=== PATIENT | female | born 2000 | race Caucasian/White ===

== ENCOUNTER 2023-04-27 18:44 | Inpatient (IN) | payer OTHER ==
[2023-04-27] MEDS ORDERED: AMPICILLIN 2,000 MG in SODIUM CHLORIDE 0.9% 100 ML IVPB STA (19:24)
[2023-04-27] MEDS: LACTATED RINGERS 1,000 ML IV SCH (19:45)
[2023-04-27 19:47] LABS: Basophils % (A) 0 %; Eosinophils % (A) 0 %; HCT 33.5 % (34.0-46.0); HGB 11.6 gm/dL (11.4-16.0); Lymphocytes # (A) 1.8 k/uL (1.0-4.8); Lymphocytes % (A) 16 %; MCH 28.2 pg (25.0-35.0); MCHC 34.8 g/dL (31.0-37.0); MCV 81.3 fL (80.0-100.0); Mean Platelet Volume 9.3; Monocytes # (A) 0.5 k/uL (0-1.0); Monocytes % (A) 4 %; Neutrophils # (A) 8.8 k/uL (1.3-7.7); Neutrophils % (A) 79 %; Platelet Count 240 k/uL (150-450); RBC 4.12 m/uL (3.80-5.40); RDW 13.1 % (11.5-15.5); WBC 11.2 k/uL (3.8-10.6)
[2023-04-27] MEDS ORDERED: CARBOPROST TROMETHAMINE 250 MCG/ML 1 ML AMP IM PRN (20:03)
[2023-04-27] MEDS ORDERED: METHYLERGONOVINE 0.2 MG/ML 1 ML AMP IM PRN (20:03)
[2023-04-27] MEDS ORDERED: TRANEXAMIC 1,000 MG/100ML-NACL 1,000 MG in EMPTY BAG 1 BAG IV PRN (20:03)
[2023-04-27] MEDS ORDERED: TERBUTALINE 1 MG/ML VIAL SQ PRN (20:03)
[2023-04-27] MEDS ORDERED: OXYTOCIN 10 UNIT/ML 1 ML VIAL IM PRN (20:03)
[2023-04-27] MEDS ORDERED: LIDOCAINE 0.5% (PF) 5 MG/ML (50 ML SDV) SQ PRN (20:03)
[2023-04-27] MEDS ORDERED: miSOPROStoL 200 MCG TAB PO PRN (20:03)
[2023-04-27] MEDS: BETAMET ACET-BETAMETH SOD PHOS 6 MG/ML MDV IM SCH (20:05)
[2023-04-27] MEDS ORDERED: NALBUPHINE 10 MG/ML (10 ML MDV) IV PRN (20:05)
--- NOTE | 2023-04-27 20:16 | P.HPOB ---
History of Present Illness H&P Date: 04/27/23 Chief Complaint: Leaking of fluid. This patient is a pleasant 22-year-old 4 para 2 female estimated date of confinement 06/02/2023 estimated gestational age 34-6/7 weeks per patient report. Patient has had no care here she's had with Dr. Tsai in [place]. Patient states that her water broke at approximately 5:00 this evening and she contacted her office and they instructed her to come to [facility]. Patient's records are unavailable to me at this time. She states that she's had normal ultrasounds and normal glucose testing. She's had 2 previous vaginal deliveries both early. Evaluation here shows gross rupture of membranes and patient is 4-5 cm dilated. Review of Systems Genitourinary: Reports Menstruation: Reports amenorrhea Past Medical History Past Medical History: No Reported History Additional Past Medical History / Comment(s): Vaginal delivery 2 History of Any Multi-Drug Resistant Organisms: None Reported Past Surgical History: No Surgical Hx Reported Past Anesthesia/Blood Transfusion Reactions: No Reported Reaction Past Psychological History: No Psychological Hx Reported Smoking Status: Never smoker Past Alcohol Use History: None Reported Past Drug Use History: None Reported Medications and Allergies Home Medications Medication Instructions Recorded Confirmed Type Vit No.179/Iron/Folic 1 tablet PO DAILY 04/27/23 04/27/23 History [ Tablet] Allergies Allergy/AdvReac Type Severity Reaction Status Date / Time latex Allergy Swelling Verified 04/27/23 19:06 Exam Intake and Output 04/27/23 04/27/23 04/27/23 06:59 14:59 22:59 Other: Weight 73.028 kg - OBG Physical Exam Abdomen: bowel sounds normal, no diffuse tenderness, no bruit present, no guarding noted, no hepatomegaly, no splenomegaly, no mass Vulva: both: normal Vagina: no discharge Cervix: no lesion (Cervix is 4-5 cm dilated 50% effaced with gross rupture membranes), no discharge Uterus: enlarged Results Result Diagrams: 04/27/23 19:26 Abnormal Lab Results - Last 24 Hours (Table) 04/27/23 Range/Units 19:26 WBC 11.2 H (3.8-10.6) k/uL Hct 33.5 L (34.0-46.0) % Neutrophils # 8.8 H (1.3-7.7) k/uL Assessment and Plan Assessment: This is a pleasant 22-year-old 4 para 2 female 34-6/7 weeks gestation with premature rupture membranes. Patient has a history of fast labors and is 4-5 cm dilated. Due to the concern of delivery and transport it is my opinion the patient will need to be admitted here for care. Plan is to administer IV antibiotics due to unknown group B strep status, Celestone for lung maturity, and proceed with expectant management at this time. Since the patient is going to be 35 weeks and approximately 4 hours, most likely the baby will be kept here in the nursery unless deemed otherwise by the internal combustion engineer. I discussed the treatment plan with the patient and her partner and a understand. Questions are answered. (1) 35 weeks gestation of Current Visit: Yes Status: Acute Code(s): Z3A.35 - 35 WEEKS GESTATION OF SNOMED Code(s): 43631337 (2) PROM (premature rupture of membranes) Current Visit: Yes Status: Acute Code(s): O42.90 - STEVEN ROM, 7TH0 BETW RUPT & ONST LABR, UNSP WEEKS OF GEST SNOMED Code(s): 64498090
[2023-04-27 20:25] LABS: Appearance,Urine Clear (Clear); Bilirubin,Urine Negative (Negative); Blood,Urine Negative (Negative); Color,Urine Colorless; Glucose,Urine (UA) Negative (Negative); Ketones,Urine Negative (Negative); Leukocyte Esterase,Urine Small (Negative); Mucus,Urine Rare /hpf; Nitrite,Urine Negative (Negative); PH, Urine 6.5 (5.0-8.0); Protein,Urine Trace (Negative); RBC,Urine 1 /hpf (0-5); Specific Gravity,Urine 1.009 (1.001-1.035); Squamous Epithelial Cell,Urine 6 /hpf (0-4); Urobilinogen,Urine <2.0 mg/dL (<2.0); WBC,Urine 7 /hpf (0-5)
[2023-04-27 20:46] LABS: Amphetamine Screen,Urine Not Detected (NotDetected); Barbiturate Screen,Urine Not Detected (NotDetected); Benzodiazepines Screen,Urine Not Detected (NotDetected); Cocaine Screen,Urine Not Detected (NotDetected); Methadone Screen, Urine Not Detected (NotDetected); Opiate Screen,Urine Not Detected (NotDetected); Oxycodone Screen, Urine Not Detected (NotDetected); Phencyclidine Screen,Urine Not Detected (NotDetected); Tricyclic Antidepressant,Urine Not Detected (NotDetected); Urn Cannabinoid Scrn Not Detected (NotDetected)
[2023-04-28] MEDS: AMPICILLIN 1,000 MG in SODIUM CHLORIDE 0.9% 50 ML IVPB SCH ×4 (00:03→12:26)
[2023-04-28] MEDS: LACTATED RINGERS 1,000 ML IV SCH ×2 (00:06→10:02)
[2023-04-28 02:43] LABS: Hepatitis B Surface Antigen Nonreactive
[2023-04-28] MEDS ORDERED: OXYTOCIN 30 UNITS/500 ML NS 30 UNIT in SALINE 1 500ML.BAG IV SCH ×2 (05:15→12:52)
[2023-04-28 05:19] LABS: HIV 2 AB Non-Reactive (Non-Reactive); HIV AB P24 Non-Reactive (Non-Reactive); HIV P24 AG Non-Reactive (Non-Reactive)
--- NOTE | 2023-04-28 07:12 | P.MSEPDOC ---
Presenting Problems - Arrival Data Date of Arrival on Unit: 04/27/23 Time of Arrival on Unit: 19:58 Mode of Transport: Ambulatory - Complaint OB-Reason for Admission/Chief Complaint: Rule Out SROM Comment: DOM pt presents to triage with c/o SROM around 1700 Medical History - Information : 4 Para: 2 Term: 2 : 0 Abortions: Spontaneous or Elective: 1 Number of Living Children: 2 - Gestational Age Gestational Age by PATRICA (wks/days): 34 Weeks and 6 Days Review of Systems - Review of Systems Constitutional: No problems Breast: No problems ENT: No problems Cardiovascular: No problems Respiratory: No problems Gastrointestinal: No problems Genitourinary: No problems Musculoskeletal: No problems Neurological: No problems Skin: No problems Vital Signs - Temperature Temperature: 97.8 F Temperature Source: Temporal Artery Scan - Pulse Pulse Oximetery Pulse Rate: 100 Pulse Assessment Method: Pulse Oximetry - Respirations Respiratory Rate: 18 Oxygen Delivery Method: Room Air O2 Sat by Pulse Oximetry: 99 - Blood Pressure Right Arm Blood Pressure: 135/69 Blood Pressure Mean: 91 Blood Pressure Source: Automatic Cuff Medical Screen Scoring - Cervical Exam Dilation (cm): 4 Effacement (%): 50 Station: -2 Membranes: Ruptured - Uterine Contractions Intensity: Mild Resting: Soft to palpation - Assessment - Baby A Baseline FHR: 130 Heart Rate - NICHD Category: Category I (Normal) NST: Reactive Physician Notification - Physician Notified Physician Notified Date: 04/27/23 Physician Notified Time: 19:17 Physician: Yovanny Holt New Order Received: Yes - Notification Comment Comment: RN spoke with Dr. Holt regarding DOM pt who presents to triage with c/o SROM. around 1700 with clear fluid and is 34 weeks, 6 days. Reported maternal vital signs,. positive amnisure, cervical exam of 4/70/-2, isis 1 FHT, no contx on toco or palpated by. RN. Reported pt receives care through Dr. Tsai out of [place]. Orders received to start. IV, draw labs, CBC, T/S, tox screen, start 2g ampicillin and Dr. Holt to. head into unit. At 1955, verbal order received from Dr. Holt to admit pt for labor. Maternal Triage Index - Maternal Triage Index Presenting for scheduled procedure w/no complaint: No - Stat/Priority 1 Stat Priority 1: No - Urgent/Priority 2 Urgent Priority 2: No - Prompt/Priority 3 Prompt Priority 3: Yes Criteria Met for Priority 3: SROM 34 6/7 weeks Disposition - Disposition OB Disposition: Admit, LDRP Suite Transferred to:: Suite 3 I agree with the RN Medical Screening Exam: Yes Case reviewed; plan agreed upon as documented in EMR&OBIX.: Yes Diagnosis: RELATED CONDITIONS, UNSPECIFIED, THIRD TRIMESTER
[2023-04-28] MEDS: BETAMET ACET-BETAMETH SOD PHOS 6 MG/ML MDV IM SCH (07:55)
[2023-04-28] MEDS ORDERED: fentaNYL (PF) 50 MCG/ML 5 ML AMP ONE (11:38)
[2023-04-28] MEDS ORDERED: ROPIVACAINE 5 MG/ML 30 ML VIAL ONE (11:38)
[2023-04-28] MEDS ORDERED: SODIUM CHLORIDE 0.9% 250 ML BAG ONE (11:38)
[2023-04-28] MEDS ORDERED: BENZOCAINE/MENTHOL SPRAY 1 GM/SPRAY AEROSOL TOPICAL PRN (12:52)
[2023-04-28] MEDS ORDERED: ZOLPIDEM 5 MG TAB PO PRN (12:52)
[2023-04-28] MEDS ORDERED: diphenhydrAMINE 50 MG/ML 1 ML VIAL IVP PRN (12:52)
[2023-04-28] MEDS ORDERED: diphenhydrAMINE 25 MG CAP PO PRN (12:52)
[2023-04-28] MEDS ORDERED: HYDROCORTISONE 2.5% RECTAL CREAM 30 GM TUBE RECTAL PRN (12:52)
[2023-04-28] MEDS ORDERED: LANOLIN CREAM 5 GM TUBE TOPICAL PRN (12:52)
[2023-04-28] MEDS ORDERED: bisacodyL 10 MG SUPP RECTAL PRN (12:52)
[2023-04-28] MEDS ORDERED: SIMETHICONE 80 MG CHEWABLE PO PRN (12:52)
[2023-04-28] MEDS: IBUPROFEN 600 MG TAB PO PRN ×2 (13:07→19:43)
[2023-04-28 13:43] LABS: N. gonorrhoeae,PCR Negative (Negative)
[2023-04-28 13:51] LABS: C. trachomatis,PCR Negative (Negative)
[2023-04-28] MEDS: SENNOSIDES-DOCUSATE SODIUM 1 EACH TAB PO SCH ×2 (14:00→22:16)
[2023-04-29] MEDS: IBUPROFEN 600 MG TAB PO PRN ×3 (03:08→14:40)
[2023-04-29 07:44] LABS: Basophils % (A) 0 %; Eosinophils % (A) 0 %; HCT 32.2 % (34.0-46.0); HGB 10.9 gm/dL (11.4-16.0); Lymphocytes # (A) 1.9 k/uL (1.0-4.8); Lymphocytes % (A) 13 %; MCH 28.3 pg (25.0-35.0); MCHC 33.8 g/dL (31.0-37.0); MCV 83.6 fL (80.0-100.0); Mean Platelet Volume 9.2; Monocytes # (A) 0.7 k/uL (0-1.0); Monocytes % (A) 5 %; Neutrophils # (A) 11.9 k/uL (1.3-7.7); Neutrophils % (A) 81 %; Platelet Count 249 k/uL (150-450); RBC 3.85 m/uL (3.80-5.40); RDW 13.6 % (11.5-15.5); WBC 14.6 k/uL (3.8-10.6)
[2023-04-29 08:26] VITALS: RESP 17
[2023-04-29] MEDS: SENNOSIDES-DOCUSATE SODIUM 1 EACH TAB PO SCH (08:26)
--- NOTE | 2023-04-29 09:39 | P.PROBDLV ---
Vaginal Delivery Note - . Vaginal Delivery Note: 22-year-old presents at 35 weeks gestation complaining of ruptured membranes at 1700 on 04/27/2023. She received 2 doses of Celestone 12 hours apart. Then Pitocin augmentation was started. She did get an epidural when she was uncomfortable. She soon became completely dilated. She pushed, and delivered a viable male over intact perineum under epidural anesthesia at 12 PM on 04/28/2023. Head delivered OA, anterior shoulder delivered gentle downward guidance for by posterior shoulder and rest of body. Nose and mouth bulb suctioned, cord clamped and cut, placed mother's abdomen. Apgars 9, 9, weight 5 pounds 2.2 ounces. Placenta delivered spontaneously, intact with three-vessel cord at 1201. Vagina, cervix, and perineum were inspected. No lacerations noted. Estimated blood loss 150 mL. Mother and baby in stable condition.
--- NOTE | 2023-04-29 09:41 | P.PNOBGVD ---
Subjective - Subjective Principal diagnosis: Status post normal vaginal delivery day #1 Interval history: Patient seen and examined. Denies nausea, vomiting, chest pain, shortness of breath or calf pain. The baby is in the special care nursery for breathing issues Patient reports: Reports appetite normal, Reports voiding normally, Reports pain well controlled, Reports ambulating normally Objective - Latest Vital Signs Latest vital signs: Vital Signs Temp Pulse Resp BP Pulse Ox 04/29/23 08:00 97.4 F L 68 17 123/69 04/29/23 04:00 98.3 F 72 14 100/67 98 04/29/23 00:09 98.0 F 78 14 107/57 98 04/28/23 19:41 98.4 F 76 14 116/69 99 04/28/23 16:00 97.6 F 92 16 111/67 04/28/23 14:03 96.5 F L 53 L 17 106/58 04/28/23 13:33 59 L 17 116/64 04/28/23 13:03 57 L 17 100/55 04/28/23 12:48 54 L 17 104/58 04/28/23 12:33 62 17 101/55 04/28/23 12:18 78 17 107/56 04/28/23 12:03 96.4 F L 66 18 110/57 Intake and Output 04/28/23 04/29/23 04/29/23 22:59 06:59 14:59 Other: # Voids 1 - Exam Lungs: bilateral: normal Chest: Normal S1, Normal S2 Extremities: Present: normal Abdomen: Present: normal appearance, soft Uterus: Present: normal, firm - Labs Labs: Abnormal Lab Results - Last 24 Hours (Table) 04/29/23 Range/Units 07:21 WBC 14.6 H (3.8-10.6) k/uL Hgb 10.9 L (11.4-16.0) gm/dL Hct 32.2 L (34.0-46.0) % Neutrophils # 11.9 H (1.3-7.7) k/uL Assessment and Plan (1) Status post normal vaginal delivery Current Visit: Yes Status: Acute Code(s): CFA6939 - SNOMED Code(s): 234313075 Plan: 1. Continue care
[2023-04-29] MEDS: ACETAMINOPHEN TAB 325 MG TAB PO PRN ×2 (11:40→17:22)
--- NOTE | 2023-04-29 14:47 | P.DS ---
Providers Date of admission: 04/27/23 19:58 Expected date of discharge: 04/29/23 Attending physician: Yovanny Holt Primary care physician: Stated None - Discharge Diagnosis(es) (1) Status post normal vaginal delivery Current Visit: Yes Status: Acute Hospital Course: Patient presented with rupture of membranes. She underwent a normal vaginal delivery after 2 doses of steroids 12 hours apart. She underwent a normal vaginal delivery. course was uneventful. She denies nausea, vomiting, chest pain, shortness of breath or calf pain. She'll be discharged home day #1 in stable condition to follow-up with her own physician in 6 weeks. Plan - Discharge Summary New Discharge Prescriptions: New Ibuprofen [Motrin] 600 mg PO Q6HR PRN #30 tab PRN Reason: Mild Pain Or Fever >= 100.5 No Action Vit No.179/Iron/Folic [ Tablet] 1 tablet PO DAILY Discharge Medication List Vit No.179/Iron/Folic [ Tablet] 1 tablet PO DAILY 04/27/23 [History] Ibuprofen [Motrin] 600 mg PO Q6HR PRN #30 tab 04/29/23 [Rx] Patient Instructions/Handouts: Vaginal Delivery (DC) Discharge Disposition: HOME SELF-CARE
[2023-04-29 15:09] VITALS: BP 116/71; PULSE 88; TEMP 98.1
== END 2023-04-29 17:25 | disposition home or self-care (01) | DRG 560 ==
LOC: FBPOP 18:44 → 4FBP 19:58
PROVIDERS: ADMIT Obstetrics & Gynecology; ATTEND Obstetrics & Gynecology
PROC: 10E0XZZ Delivery of Products of Conception, External Approach (ICD-10-PCS; principal; 2023-04-28)
DX: O42.913 Preterm premature rupture of membranes, unspecified as to length of time between rupture and onset of labor, third trimester (principal); Z37.0 Single live birth; Z3A.35 35 weeks gestation of pregnancy
CPT/HCPCS: 59025; 80306; 81001; 84112; 85025; 86762; 86780; 86850; 86900; 86901; 87340; 87390; 87491; 87591; 99213

== ENCOUNTER 2024-09-14 17:19 | Inpatient (IN) | payer OTHER ==
[2024-09-14] MEDS ORDERED: LIDOCAINE 0.5% (PF) 5 MG/ML (50 ML SDV) SQ PRN (18:01)
[2024-09-14] MEDS ORDERED: TERBUTALINE 1 MG/ML VIAL SQ PRN (18:01)
[2024-09-14] MEDS ORDERED: TRANEXAMIC 1,000 MG/100ML-NACL 1,000 MG in EMPTY BAG 1 BAG IV PRN (18:01)
[2024-09-14] MEDS ORDERED: miSOPROStoL 200 MCG TAB PO PRN (18:01)
[2024-09-14] MEDS ORDERED: miSOPROStoL 200 MCG TAB RECTAL PRN (18:01)
[2024-09-14] MEDS ORDERED: CARBOPROST TROMETHAMINE 250 MCG/ML 1 ML AMP IM PRN (18:01)
[2024-09-14] MEDS ORDERED: OXYTOCIN 10 UNIT/ML 1 ML VIAL IM PRN (18:01)
[2024-09-14] MEDS ORDERED: METHYLERGONOVINE 0.2 MG/ML 1 ML AMP IM PRN (18:01)
[2024-09-14] MEDS: LACTATED RINGERS 1,000 ML IV SCH (18:30)
[2024-09-14 18:41] LABS: Basophils % (A) 0 %; Eosinophils # (A) 0.1 k/uL (0-0.7); Eosinophils % (A) 1 %; HCT 36.3 % (34.0-46.0); HGB 11.9 gm/dL (11.4-16.0); Lymphocytes # (A) 2.5 k/uL (1.0-4.8); Lymphocytes % (A) 18 %; MCH 27.2 pg (25.0-35.0); MCHC 32.8 g/dL (31.0-37.0); MCV 82.7 fL (80.0-100.0); Mean Platelet Volume 9.7; Monocytes # (A) 0.5 k/uL (0-1.0); Monocytes % (A) 4 %; Neutrophils # (A) 10.6 k/uL (1.3-7.7); Neutrophils % (A) 76 %; Platelet Count 263 k/uL (150-450); RBC 4.39 m/uL (3.80-5.40); RDW 13.4 % (11.5-15.5); WBC 13.9 k/uL (3.8-10.6)
[2024-09-14] MEDS: OXYTOCIN 30 UNITS/500 ML NS 30 UNIT in SALINE 1 500ML.BAG IV SCH (19:12)
[2024-09-14] MEDS ORDERED: SODIUM CHLORIDE 0.9% 250 ML BAG ONE (19:49)
[2024-09-14] MEDS ORDERED: ROPIVACAINE 5 MG/ML 30 ML VIAL ONE (19:49)
[2024-09-14] MEDS ORDERED: fentaNYL (PF) 50 MCG/ML 5 ML AMP ONE (19:49)
--- NOTE | 2024-09-14 21:13 | P.HPOB ---
History of Present Illness H&P Date: 09/14/24 Chief Complaint: 37 and 1 sevenths weeks, spontaneous rupture of membranes Patient is a 24-year-old 6 para 2-1-2-3 admitted at 37 and 1 sevenths weeks as established by last menstrual period and confirmed by 9-week ultrasound. She is admitted with documented spontaneous rupture of membranes occurring this morning at approximately 7:30 in the morning with clear fluid. Her has been uncomplicated aside from inconsistent care. She does have a history of a delivery at 34-6/7 weeks after premature spontaneous rupture of membranes. She has had no problems of that nature during this . On labor delivery, all signs are reassuring with a category 1 heart rate tracing. She is having inconsistent contractions at the time o f admission. Group B strep status is negative. Obstetrical history: 6 para 2-1-2-3 with 2 term vaginal deliveries and 1 vaginal delivery as noted above. EDC of 10/04/2024 was established by last menstrual period and confirmed by 9-week ultrasound. Laboratory workup demonstrates a blood type B+ with a negative antibody screen. Rubella status is immune. The remainder of the laboratory workup was within normal limits. Early Glucola and second trimester Glucola were both within normal limits. Group B strep status is negative. Gynecologic history: Unremarkable with no history of any infections to include STDs. Review of Systems Review of systems is confined to history of present illness. Past Medical History Past Medical History: No Reported History Additional Past Medical History / Comment(s): Vaginal delivery 2 History of Any Multi-Drug Resistant Organisms: None Reported Past Surgical History: No Surgical Hx Reported Additional Past Surgical History / Comment(s): Granite teeth, Past Anesthesia/Blood Transfusion Reactions: No Reported Reaction Past Psychological History: No Psychological Hx Reported Smoking Status: Vaper Past Alcohol Use History: None Reported Past Drug Use History: Marijuana Additional Drug Use History / Comment(s): THC gummies - Past Family History Mother Family Medical History: No Reported History Medications and Allergies Home Medications Medication Instructions Recorded Confirmed Type Vit No.179/Iron/Folic 1 tablet PO DAILY 04/27/23 09/14/24 History [ Tablet] Allergies Allergy/AdvReac Type Severity Reaction Status Date / Time latex Allergy Rash/Hives Verified 09/14/24 17:22 Exam Vital Signs Temp Pulse Resp BP Pulse Ox 09/14/24 18:20 96.6 F L 55 L 16 123/76 97 Intake and Output 09/14/24 09/14/24 09/14/24 06:59 14:59 22:59 Other: Weight 82.1 kg In general, this is a well-developed, well-nourished white female in no acute distress. Her heart has a regular rhythm rate without murmur. Her lungs clear to auscultation bilaterally in all arriaga. Her abdomen is gravid, nondistended, has normal active bowel sounds, soft, nontender, and without any palpable masses aside from uterine fundus. Her extremities are without any cyanosis, clubbing, or edema and are nontender to palpation bilaterally. At the time of admission, her cervix was found to be 5 to 6 cm dilated, 70% effaced, with the vertex and presentation at -2 station. Spontaneous rupture of membranes is documented with clear fluid. Results Result Diagrams: 09/14/24 18:30 Abnormal Lab Results - Last 24 Hours (Table) 09/14/24 Range/Units 18:30 WBC 13.9 H (3.8-10.6) k/uL Neutrophils # 10.6 H (1.3-7.7) k/uL Assessment and Plan (1) Spontaneous rupture of amniotic membranes Current Visit: Yes Status: Acute Code(s): XPG4551 - SNOMED Code(s): 522559961 (2) Active labor at term Current Visit: Yes Status: Acute Code(s): OGJ8544 - SNOMED Code(s): 15984479 Plan: Patient is admitted for active management of labor. Given rupture of membranes approximately 10 hours prior to admission, Pitocin augmentation was started immediately. She an had epidural placed for analgesia. She was to have close m aternal and surveillance and expectant management was practiced. Vaginal delivery is anticipated.
--- NOTE | 2024-09-14 21:16 | P.PROBDLV ---
Vaginal Delivery Note - . Vaginal Delivery Note: Patient is a 24-year-old 6 para 2-1-0-3 admitted at 37 and 1 sevenths weeks by good dating parameters. She is admitted with documented spontaneous rupture of membranes for clear fluid. She is in early active labor with all signs reassuring, category 1 heart rate tracing. Contractions at the time of admission are irregular. She did request an epidural which was placed shortly after admission. Pitocin augmentation was started. She made fairly rapid progress to complete and then pushed over the course of approximately 2-3 contractions to a normal spontaneous vaginal delivery of a viable 5 pound 6 ounce baby girl with Apgars of 9 at 1 minute and 9 at 5 minutes delivered in the direct occiput anterior position. There was a loose nuchal cord x 1 which was reduced following delivery of the . The placenta was delivered spontaneously, intact, and grossly normal with a grossly normal, centrally inserted three-vessel cord. There were no lacerations the perineum, vagina, or cervix. Estimated blood loss was 100 mL or less. There were no complications. All sponge, instrument, and needle counts were correct. Both mother and infant are resting comfortably in recovery.
[2024-09-14] MEDS ORDERED: ZOLPIDEM 5 MG TAB PO PRN (21:44)
[2024-09-14] MEDS ORDERED: diphenhydrAMINE 50 MG/ML 1 ML VIAL IVP PRN ×2 (21:44)
[2024-09-14] MEDS ORDERED: HYDROCORTISONE 2.5% RECTAL CREAM 30 GM TUBE RECTAL PRN (21:44)
[2024-09-14] MEDS ORDERED: diphenhydrAMINE 25 MG CAP PO PRN (21:44)
[2024-09-14] MEDS ORDERED: LANOLIN CREAM 1 GM TUBE TOPICAL PRN (21:44)
[2024-09-14] MEDS ORDERED: SIMETHICONE 80 MG CHEWABLE PO PRN (21:44)
[2024-09-14] MEDS ORDERED: diphenhydrAMINE 50 MG CAP PO PRN (21:44)
[2024-09-14] MEDS ORDERED: BENZOCAINE/MENTHOL SPRAY 1 GM/SPRAY AEROSOL TOPICAL PRN (21:44)
[2024-09-14] MEDS: IBUPROFEN 800 MG TAB PO SCH (23:45)
[2024-09-15] MEDS: ACETAMINOPHEN TAB 500 MG TAB PO SCH (04:21)
[2024-09-15 05:39] LABS: Basophils % (A) 0 %; Eosinophils # (A) 0.1 k/uL (0-0.7); Eosinophils % (A) 0 %; HCT 33.2 % (34.0-46.0); Lymphocytes # (A) 3.1 k/uL (1.0-4.8); Lymphocytes % (A) 22 %; MCH 28.1 pg (25.0-35.0); MCV 85.2 fL (80.0-100.0); Mean Platelet Volume 9.8; Monocytes # (A) 0.7 k/uL (0-1.0); Monocytes % (A) 5 %; Neutrophils # (A) 9.9 k/uL (1.3-7.7); Neutrophils % (A) 71 %; Platelet Count 219 k/uL (150-450); RBC 3.89 m/uL (3.80-5.40); RDW 13.3 % (11.5-15.5); WBC 13.9 k/uL (3.8-10.6)
[2024-09-15] MEDS: SENNOSIDES-DOCUSATE SODIUM 1 EACH TAB PO SCH (07:57)
--- NOTE | 2024-09-15 08:10 | P.PNOBGVD ---
Subjective - Subjective Patient reports: Reports appetite normal, Reports voiding normally, Reports pain well controlled, Reports ambulating normally : doing well, nursing well Objective - Latest Vital Signs Latest vital signs: Vital Signs Temp Pulse Resp BP Pulse Ox 09/15/24 04:22 98.2 F 59 L 16 124/78 09/15/24 00:00 98.3 F 74 16 125/69 09/14/24 23:03 96.7 F L 85 16 120/88 09/14/24 22:48 64 16 117/77 09/14/24 22:33 68 16 132/75 09/14/24 22:18 62 16 124/68 09/14/24 22:03 50 L 16 107/60 09/14/24 21:48 57 L 16 113/69 09/14/24 21:33 70 16 107/60 09/14/24 21:18 81 16 154/92 09/14/24 21:03 70 16 121/56 09/14/24 18:20 96.6 F L 55 L 16 123/76 97 Intake and Output 09/14/24 09/15/24 09/15/24 22:59 06:59 14:59 Intake Total 225.934 Output Total 100 80 Balance 125.934 -80 Intake: Intake, IV Titration 225.934 Amount Oxytocin 30 Units/500 ml 225.934 Ns 30 unit In Saline 1 500ml.bag @ Per Protocol IV .Q0M [facility] Rx#:[id number] Output: Output, Estimated Blood 100 Loss Amount Output, Quantitative 80 Blood Loss Other: # Voids 1 Weight 82.1 kg - Exam Extremities: Present: normal Abdomen: Present: normal appearance, soft Uterus: Present: normal, firm (Uterine fundus is tonic and nontender below the umbilicus.) - Labs Labs: Abnormal Lab Results - Last 24 Hours (Table) 09/14/24 09/15/24 Range/Units 18:30 04:57 WBC 13.9 H 13.9 H (3.8-10.6) k/uL Hgb 11.0 L (11.4-16.0) gm/dL Hct 33.2 L (34.0-46.0) % Neutrophils # 10.6 H 9.9 H (1.3-7.7) k/uL Assessment and Plan (1) Spontaneous rupture of amniotic membranes Current Visit: Yes Status: Acute Code(s): TRL9070 - SNOMED Code(s): 703081943 (2) Active labor at term Current Visit: Yes Status: Acute Code(s): RCE6186 - SNOMED Code(s): 71760602 (3) Normal spontaneous vaginal delivery Current Visit: Yes Status: Acute Code(s): O80 - ENCOUNTER FOR FULL-TERM UNCOMPLICATED DELIVERY SNOMED Code(s): 94301748 Plan: Continue routine care. I have encouraged patient ambulate in the hallways routinely. I would anticipate discharge home tomorrow pending no complications.
--- NOTE | 2024-09-15 20:13 | P.DS ---
Providers Date of admission: 09/14/24 18:36 Expected date of discharge: 09/15/24 Attending physician: Clarissa Holguin Primary care physician: Stated None - Discharge Diagnosis(es) (1) Spontaneous rupture of amniotic membranes Current Visit: Yes Status: Acute (2) Active labor at term Current Visit: Yes Status: Acute (3) Normal spontaneous vaginal delivery Current Visit: Yes Status: Acute Hospital Course: Patient is a 24-year-old 6 para 2-1-2-3 admitted at 37 and 1 sevenths weeks by good dating parameters. She is admitted in early labor with documented spontaneous rupture of membranes for clear fluid. Her was uncomplicated aside from somewhat inconsistent care. She had history of 1 delivery at 34-6/7 weeks after spontaneous rupture of membranes. There has been no issues during this . On labor and delivery, status is reassuring with a category 1 heart rate tracing. Contractions were initially inconsistent and group B strep status is negative. As a result, she had Pitocin augmentation started and an epidural catheter placed for analgesia. She made fairly rapid progress through the active phase of labor to complete and then pushed to a normal spontaneous vaginal delivery of a viable 5 pound 6 ounce baby girl with Apgars of 9 at 1 minute and 9 at 5 minutes. Her course was unremarkable with vital signs remaining stable and her t emperature was afebrile throughout. She was deemed stable for discharge on day #1 and was discharged home to follow-up in the office in 6 weeks time routinely. Discharge instructions included calling for any significantly increased bleeding or foul-smelling lochia, significantly increased fever or abdominal pain, perineal complaints, breast complaints, or anything else that concerned her. She was additionally instructed to have nothing in the vagina for at least 6 weeks time to include intercourse. She understood her instructions and agrees to follow-up as noted above. Discharge medications included [id number] analgesic pain medications as well as continued vitamins as she has opted to breast-feed. Maternal blood type is B+ and rubella status is immune. Procedures: #1. Epidural analgesia #2. Pitocin augmentation #3. Normal spontaneous vaginal delivery Patient Condition at Discharge: Stable Plan - Discharge Summary New Discharge Prescriptions: No Action Vit No.179/Iron/Folic [ Tablet] 1 tablet PO DAILY Discharge Medication List Vit No.179/Iron/Folic [ Tablet] 1 tablet PO DAILY 04/27/23 [History] Follow up Appointment(s)/Referral(s): Clarissa Holguin DO [Doctor of Osteopathic Medicine] - 6 Weeks Discharge Disposition: HOME SELF-CARE
[2024-09-15 22:03] VITALS: BP 114/72; PULSE 81; RESP 16; TEMP 98.2
== END 2024-09-15 22:10 | disposition home or self-care (01) | DRG 560 ==
LOC: FBPOP 17:19 → 4FBP 18:36
PROVIDERS: ADMIT Obstetrics & Gynecology; ATTEND Obstetrics & Gynecology
PROC: 10E0XZZ Delivery of Products of Conception, External Approach (ICD-10-PCS; principal; 2024-09-14)
DX: O42.92 Full-term premature rupture of membranes, unspecified as to length of time between rupture and onset of labor (principal); Z37.0 Single live birth; Z87.51 Personal history of pre-term labor; Z91.040 Latex allergy status; Z3A.37 37 weeks gestation of pregnancy
CPT/HCPCS: 59025; 84112; 85025; 86850; 86900; 86901; 99213